=== PATIENT | male | born 1960 | race Two or more races ===

== ENCOUNTER 2020-05-29 13:47 | Outpatient (CLI) | payer MEDICAID ==
[~2020-05-29] VITALS: Ht 175.3 cm; Wt 96.2 kg
[2020-05-29] MEDS ORDERED: AMLODIPINE BESY10 MG ORAL (14:09)
[2020-05-29] MEDS ORDERED: LISINOPRIL20 MG ORAL (14:09)
[2020-05-29 14:14] VITALS: BP 130/79
--- NOTE | 2020-05-29 15:00 | Consultation ---
DATE OF CONSULTATION: 05/29/2020 GASTROENTEROLOGY CONSULTATION CONSULTING PHYSICIAN: Jorge Luis Morales MD. CHIEF COMPLAINT: Referral for pancreatic cyst. Also, referral for screening colonoscopy. PAST MEDICAL HISTORY: 1. Hypertension. 2. Asthma. PAST SURGICAL HISTORY: Hernia repair. MEDICATIONS: Lisinopril and amlodipine. FAMILY HISTORY: Mother had hypertension. SOCIAL HISTORY: The patient occasionally drinks alcohol. Denies any tobacco or IV drug abuse. ALLERGIES: No known allergies. REVIEW OF SYSTEMS: A 10-point review of systems was performed and was negative. PHYSICAL EXAMINATION: VITAL SIGNS: Temperature 97.9, blood pressure 130/79, pulse 77, respirations 20. HEENT: Normocephalic and atraumatic. Sclerae are anicteric. NECK: Supple. No evidence of obvious lymphadenopathy. CARDIOVASCULAR: Regular rate and rhythm. Plus S1-S2. LUNGS: Clear to auscultation bilaterally. ABDOMEN: Positive bowel sounds. Soft and nontender. No rebound. No guarding. No peritoneal sign. EXTREMITIES: No cyanosis. No clubbing. No edema. ASSESSMENT AND PLAN: This is a 60-year-old male, needs a screening colonoscopy. The patient was given instruction for colonoscopy. Risks and benefits of procedure was explained to him. We will schedule him as soon as authorization is obtained. The patient also has 3 cm pancreatic cyst that needs an endoscopic ultrasound. Also, we are going to try to schedule it when authorization is obtained. Jorge Luis Morales M.D. DR: LAURA JOB#: [id number] CC:
== END 2020-05-29 15:47 | disposition home or self-care (01) ==
LOC: PAN 13:47
DX: K86.2 Cyst of pancreas (principal); Z79.899 Other long term (current) drug therapy; I10 Essential (primary) hypertension
CPT/HCPCS: G0463

== ENCOUNTER 2020-09-25 12:57 | Outpatient (CLI) | payer MEDICAID ==
[~2020-09-25 12:57] MED LIST: AMLODIPINE BESY10 MG ORAL; LISINOPRIL20 MG ORAL
== END 2020-09-25 14:57 | disposition home or self-care (01) ==
LOC: PAN 12:57
DX: R10.9 Unspecified abdominal pain (principal)
CPT/HCPCS: 99212